=== PATIENT | female | born 1955 | race African-American/Black ===

== ENCOUNTER 2016-11-09 10:29 | Emergency (ER) | payer BC ==
[~2016-11-09 10:29] MED LIST: ALPRAZOLAM PO; ALPRAZOLAM0.25 MG PO; ANTIVERT PO; ASPIRIN81 MG PO; ATARAX PO; CELEXA PO; CELEXA20 M1 PO; ESTRACE PO; MOTION RELIEF25 MG PO; OMEPRAZOLE PO; OMEPRAZOLE20 M1 PO; TOPROL XL PO; ZEBETA5 M1 PO
[2016-11-09] MEDS ORDERED: BUSPAR (10:36)
== END 2016-11-09 11:41 | disposition home or self-care (01) ==
LOC: SED 10:29
DX: H11.32 Conjunctival hemorrhage, left eye (principal); I10 Essential (primary) hypertension; K21.9 Gastro-esophageal reflux disease without esophagitis; F41.9 Anxiety disorder, unspecified; Z88.2 Allergy status to sulfonamides; Z88.5 Allergy status to narcotic agent; Z88.8 Allergy status to other drugs, medicaments and biological substances; Z79.82 Long term (current) use of aspirin; Z79.899 Other long term (current) drug therapy
CPT/HCPCS: 99283

== ENCOUNTER 2017-01-02 05:37 | Emergency (ER) | payer BC ==
[~2017-01-02] VITALS: Ht 170.2 cm; Wt 87.1 kg
--- NOTE | ~2017-01-02 | EKG ---
PATIENT: FELIBERTO BRAUN UNIT #: [id number] Ventricular Rate: 56 BPM Atrial Rate: 56 BPM P-R Interval: 142 ms QRS Duration: 76 ms Q-T Interval: 420 ms QTC Calculation(Bezet): 405 ms P [place]: 60 degrees Calculated R [place]: 36 degrees Calculated T [place]: 29 degrees Diagnosis Line: Sinus bradycardia Diagnosis Line: Otherwise normal ECG Diagnosis Line: When compared with ECG of 19-MAY-2016 19:00, Diagnosis Line: No significant change was found Diagnosis Line: Confirmed by BEN PROCTOR MD ([id number]) on 01/04/2017 Diagnosis Line: 4:37:18 PM INTERPRETING MD: ESTHELA MURILLO
[~2017-01-02 05:37] MED LIST changes: +BUSPAR
[2017-01-02 06:23] LABS: BASOPHIL% 0.6 % (0-2.5); EOSINOPHIL# 0.1 X10e3 (0-0.7); HEMATOCRIT 40.4 % (35.0-45.0); LYMPHOCYTE# 2.7 X10e3 (1.0-3.5); LYMPHOCYTE% 35.2 % (17.0-45.0); MEAN CELL VOLUME 82.2 FL (83-96); MEAN CORPUSCULAR HEMOGLOBIN 26.5 PG (28-34); MEAN CORPUSCULAR HGB CONC 32.2 g/dL (30-36); MEAN PLATELET VOLUME 8.2 FL (6.5-11.5); MONOCYTE# 0.7 X10e3 (0-1.0); MONOCYTE% 9.5 % (3.0-12.0); NEUTROPHIL# 4.1 X10e3 (1.5-7.1); NEUTROPHIL% 53.7 % (40-75); PLATELET COUNT 192 X10e3 (140-420); RED BLOOD COUNT 4.92 X10e (3.90-5.30); WHITE BLOOD COUNT 7.6 X10e3 (4.0-10.5)
[2017-01-02 06:24] LABS: DIFF IND NO
[2017-01-02 06:41] LABS: BUN/CREATININE RATIO 17.14; CALCIUM SERUM 8.5 mg/dL (8.4-10.2); CREATININE SERUM 0.7 mg/dL (0.6-1.4); GLOM FILT RATE Estimated 107.6 mL/min (>60); POTASSIUM 3.5 mmol/L (3.5-5.1)
[2017-01-02 13:41] LABS: POC - CKMB <1.0 ng/mL (0.0-7.9); POC - MYOGLOBIN 63.9 ng/mL (0.0-169.0)
[2017-01-02 13:42] LABS: POC - TROPONIN <0.05 ng/mL (<=0.05)
== END 2017-01-02 07:27 | disposition home or self-care (01) ==
LOC: SED 05:37
PROVIDERS: Emergency Medicine
DX: E87.1 Hypo-osmolality and hyponatremia (principal); I10 Essential (primary) hypertension; F41.9 Anxiety disorder, unspecified; Z79.82 Long term (current) use of aspirin; Z79.899 Other long term (current) drug therapy; Z88.2 Allergy status to sulfonamides; Z88.5 Allergy status to narcotic agent; Z88.8 Allergy status to other drugs, medicaments and biological substances
CPT/HCPCS: 36415; 80048; 82553; 83874; 84484; 85025; 93005; 96360; 99285

== ENCOUNTER 2017-01-17 05:09 | Emergency (ER) | payer BC ==
[~2017-01-17] VITALS: Ht 170.2 cm; Wt 86.6 kg
== END 2017-01-17 05:53 | disposition home or self-care (01) ==
LOC: SED 05:09
DX: I10 Essential (primary) hypertension (principal); F41.9 Anxiety disorder, unspecified; Z88.1 Allergy status to other antibiotic agents; Z90.710 Acquired absence of both cervix and uterus
CPT/HCPCS: 99284